=== PATIENT | female | born 1970 | race African-American/Black ===

== ENCOUNTER → 2017-09-21 08:46 | Outpatient (CLI) | payer OTHER, SELFPAY ==
--- NOTE | 2017-09-21 09:00 | SATEXT_ITS ---
Assessment: Ana presents for weight management nutrition therapy in preparation [place] [facility] [place] has seen me about a year ago for her visits in preparation for this journey, but then decided to try again to lose weight without the additional tool of the bariatric surgery. She continues to demonstrate a high motivation and dedication to a lifestyle of weight management. She has been following a keto type nutrition therapy and has lost about 40 pounds since 10/2016, however as always, despite her best efforts, her weight slowly creeps back up. She is 68 and her weight today on RD scale is 313.9 lbs. She eats 2 hard boiled eggs, pitts, and some avocado at breakfast, 4 oz. of meat at lunch, and the meat and veggies at supper. She sometimes will make a protein shake with fruit and [place] yogurt and whey powder. She drinks one cup of coffee and the rest of the day is all water. Her physical activity includes her activities of daily life and her household and outdoor chores at this time. Nutritional Diagnosis: Class 3 obesity as evidenced by BMI of 49.4 kg/m2. Intervention: Acknowledged her excellent efforts at losing weight and the frustration of not being able to keep it off despite continued efforts. Ana 's action plan over the next month is to increase her vegetable intake daily with meals. Monitoring and Evaluation: 1. Will monitor Ana's weight monthly and her dietary patterns monthly. 2. Will evaluate her nutrition care plan monthly and adjust as needed. Thank you for the referral.
== END ==
PROVIDERS: Visit Provider Dietitian, Registered
DX: E66.9 Obesity, unspecified (principal); Z68.41 Body mass index [BMI] 40.0-44.9, adult; Z71.3 Dietary counseling and surveillance
CPT/HCPCS: 97802

== ENCOUNTER → 2017-09-24 07:18 | Outpatient (CLI) | payer OTHER, SELFPAY ==
[2017-09-24 07:43] LABS: HCT 41.4 % (36.0-46.0); HGB 13.4 g/dL (12.0-15.5); Mean Corp. HGB Concentration 32.4 g/dL (32.0-36.0); Mean Corpuscular Hemoglobin 29.1 pg (27.0-33.0); Mean Platelet Volume 10.1 fL (8.0-11.0); Platelet Count 278 x1000/uL (130-400); RBC Distribution Width 13.1 % (11.7-14.6); White Blood Cell Count 5.56 k/cumm (4.4-10.8)
[2017-09-24 09:57] LABS: ALT 27 U/L (12-78); AST 15 U/L (15-37); Albumin 3.6 g/dL (3.4-5.0); Alkaline Phosphatase 104 U/L (46-116); Anion Gap 8.2 mmol/L (3-11); BUN 16 mg/dL (7-18); Bilirubin, Total 0.2 mg/dL (0.2-1.0); CO2 27.8 mmol/L (21.0-32.0); CREATININE 1.11 mg/dL (0.55-1.02); Calcium 8.7 mg/dL (8.5-10.1); Chloride 106 mmol/L (98-107); Cholesterol 195 mg/dL (50-200); Estimated GFR 52.92 (mL/min/1.73m2); Glucose 90 mg/dL (70-100); HDL Cholesterol 46 mg/dL (40-60); LDL CHOLESTEROL 127 mg/dL (<100); Magnesium 2.4 mg/dL (1.8-2.4); Potassium 4.6 mmol/L (3.5-5.1); Sodium 142 mmol/L (136-145); TSH 1.22 uIU/mL (0.358-3.74); Total Protein 7.2 g/dL (6.4-8.2); Triglyceride 107 mg/dL (30-150)
[2017-09-24 09:58] LABS: Vitamin B12 > 1000 pg/mL (193-986)
[2017-09-29 23:57] LABS: 1,25-Dihydroxyvitamin D 61 pg/mL (18-78)
== END ==
PROVIDERS: PCP Nurse Practitioner Family; Visit Provider Nurse Practitioner Family
DX: R53.83 Other fatigue (principal); R60.0 Localized edema
CPT/HCPCS: 36415; 80053; 80061; 83721; 85027; 82607; 82652; 83735; 84443

== ENCOUNTER 2017-10-23 08:53 | Outpatient (CLI) | payer OTHER, SELFPAY ==
--- NOTE | 2017-10-23 09:00 | NS.NUTBLAN_ITS ---
Ana returns for nutritional counseling for weight management in preparation for bariatric surgery. She continues to demonstrate a high motivation to follow through with the program and to commit to a lifestyle of weight management She continues to follow a keto type diet as she reports that she feels better when she eats this way. She states it is not producing a large amount of weight loss considering how little she is eating and that she is likely in ketosis. Her physical activity continues to be her activities of daily life. She drinks water throughout the day. She is 68 and is 310.9 lbs. Her BMI is 48.9 kg/m2.. Will continue to monitor weight and PO intake. Ana will continue to follow a similar type eating plan until she is instructed to do differently prior to her surgery. Will evaluate her nutrition care plan ongoing and adjust as needed.
== END 2017-10-23 09:13 ==
PROVIDERS: Visit Provider Dietitian, Registered
DX: E66.8 Other obesity (principal); Z68.42 Body mass index [BMI] 45.0-49.9, adult; Z71.3 Dietary counseling and surveillance
CPT/HCPCS: 97803

== ENCOUNTER 2017-11-20 08:24 | Outpatient (CLI) | payer OTHER, SELFPAY ==
--- NOTE | 2017-11-20 08:30 | NS.NUTBLAN_ITS ---
Ana returns for nutritional counseling for weight management in preparation for bariatric surgery. She reports that this past month has been difficult with work stress, however she continues demonstrate weight management as a lifestyle. She did not get off track. Her dietary recall shows that she has a meal replacement shake and 1/2 cup fruit for breakfast, soup and sandwich at lunch, and meat, cheese, and veggie at supper. She drinks only water and 2 cups of coffee with cream only. She has been walking and stretching for physical activity. Ana is 68 and 310.8lbs. Her BMI is 48.9 kg/m2. Will continue to monitor weight and PO intake. Encouraged Ana to continue eating as she has been doing and to be as physically active as possible. Will evaluate her nutrition care plan ongoing and adjust as needed.
== END 2017-11-20 08:44 ==
PROVIDERS: PCP Nurse Practitioner Family; Visit Provider Dietitian, Registered
DX: E66.8 Other obesity (principal); Z68.42 Body mass index [BMI] 45.0-49.9, adult; Z71.3 Dietary counseling and surveillance
CPT/HCPCS: 97803